=== PATIENT | female | born 1995 | race Two or more races ===

== ENCOUNTER 2018-08-18 15:00 | Emergency (ER) | payer BC ==
[2018-08-18] MEDS ORDERED: Cyclobenzaprine 10 MG TAB ONE (16:03)
[2018-08-18] MEDS ORDERED: Ibuprofen 800 MG TAB ONE (16:03)
--- NOTE | 2018-08-18 16:34 | RAD ---
CERVICAL SPINE 3 VIEWS: Date: 08/18/18 HISTORY: Neck pain. FINDINGS: Vertebral body heights are maintained. Gentle reversal of curvature of the normal lordotic curvature. Cervicothoracic junction is intact. No acute fracture or dislocation. IMPRESSION: No acute osseous abnormalities are demonstrated. POS: [facility]
== END 2018-08-18 16:38 | disposition home or self-care (01) ==
LOC: ERS 15:00
DX: S16.1XXA Strain of muscle, fascia and tendon at neck level, initial encounter (principal); E66.9 Obesity, unspecified; V49.49XA Driver injured in collision with other motor vehicles in traffic accident, initial encounter
CPT/HCPCS: 72040

== ENCOUNTER 2023-08-21 12:14 | Emergency (ER) | payer BC, OTHER ==
[2023-08-21] MEDS ORDERED: HYDROcodone/Acetaminophen 5/325 mg Tablet ONE (13:41)
[2023-08-21] MEDS ORDERED: HYDROcodone/Acetaminophen 10/325 mg Tablet ONE (13:43)
== END 2023-08-21 14:26 | disposition home or self-care (01) ==
LOC: ERS 12:14
DX: S63.501A Unspecified sprain of right wrist, initial encounter (principal); E66.9 Obesity, unspecified; Y93.E5 Activity, floor mopping and cleaning